=== PATIENT | female | born 1995 | race Caucasian/White ===

== ENCOUNTER 2019-01-08 20:02 | Emergency (ER) | payer OTHER ==
[~2019-01-08] VITALS: Ht 172.7 cm; Wt 118.2 kg
[2019-01-08] MEDS ORDERED: TYLE500T78 PO (20:07)
[2019-01-08] MEDS ORDERED: KETOROLAC 60 MG/2 ML VIAL (J1885) IM ONE (21:30)
[2019-01-08] MEDS ORDERED: KETO10TAB PO (21:44)
[2019-01-08 21:46] VITALS: BP 138/69
--- NOTE | 2019-01-09 08:15 | REP ---
Left shoulder: Three views. History: Pain. Findings: The left glenohumeral and acromioclavicular joints are normally aligned. Periarticular soft tissues are unremarkable. No fractures seen. Impression: Negative left shoulder radiographs. Electronically Signed by Francisco Marrero MD 01/09/2019 08:06 A
== END 2019-01-08 21:55 | disposition home or self-care (01) ==
LOC: M ED 20:02
DX: S46.919A Strain of unspecified muscle, fascia and tendon at shoulder and upper arm level, unspecified arm, initial encounter (principal); X58.XXXA Exposure to other specified factors, initial encounter; Y92.89 Other specified places as the place of occurrence of the external cause
CPT/HCPCS: 73030; 96372; 99283; J1885

== ENCOUNTER 2021-02-27 00:03 | Emergency (ER) | payer OTHER ==
[~2021-02-27] VITALS: Ht 175.3 cm; Wt 130.0 kg
[~2021-02-27 00:03] MED LIST: KETO10TAB PO; TYLE500T78 PO
[2021-02-27] MEDS ORDERED: MAGIC MOUTHWASH SUSPENSION BTL SSP STA (01:50)
[2021-02-27] MEDS ORDERED: IBUPROFEN 600MG TAB PO ONE (01:50)
[2021-02-27] MEDS ORDERED: MAGICMW SSP (01:52)
[2021-02-27 02:03] VITALS: BP 165/81
== END 2021-02-27 02:04 | disposition home or self-care (01) ==
LOC: M ED 00:03
DX: K08.89 Other specified disorders of teeth and supporting structures (principal)